=== PATIENT | female | born 1970 | race Caucasian/White ===

== ENCOUNTER 2023-12-07 08:56 | Outpatient (AMB) | payer MEDICAID, SELFPAY ==
[2023-12-07 09:15] VITALS: BP 109/74; PULSE 89; RESP 18; TEMP 36.5; O2SAT 96; BMI 30.2
--- NOTE | 2023-12-07 09:15 | PD.ORTHCLVIS ---
Vital signs 12/07/23 09:15 Height 1.52 m Height Method Stated Weight 69.91 kg Weight Measurement Method Standing Scale BMI 30.2 BP 109/74 Blood Pressure Source Automatic Cuff Blood Pressure Location Right Upper Arm Position Sitting Respiration 18 Pulse 89 Pulse Source Monitor Temp 97.7 F Temp Source Temporal Artery Scan Pulse Oximetry (%) 96 Oxygen Delivery Method Room Air Med/Allergies Allergies & Medications Allergies tramadol Allergy (Unknown, Verified 11/24/23 15:28) Subjective Visit Visit for: follow up visit, knee and injections Immunization / Flu Flu Vaccine in the Last 12 Months: No Flu Vaccine Exclusion Criteria: No Exclusion Criteria History of Present Illness Chief complaint: KNEE INJECTIONS Date of injury / onset of symptoms: a year Patient is a pleasant 53-year female with right greater than left knee pain. This been ongoing for over 1 year and has worsened recently. She reports the pain is miserable. She takes [id number] ibuprofen. She is never had any injections. Her last films were nonweightbearing Personal History Occupation: [email or web address] PMH: none Pain Pain level (0-10): 10 Pain duration: ALL DAY Pain location: inside (medial), outside (lateral), anterior and posterior Pain quality: sharp Pain timing: increases with activity Associated signs & symptoms: weakness Ambulatory data Ambulatory device: none Treatments Improvement with previous injections: No Improvement with PT: No Improvement with NSAIDS: n/a Review of Systems Review of Systems: All systems negative unless otherwise noted in HPI. Exam Exam Patient is in no acute distress and is cooperative with the examination today. Breathing is nonlabored. Patient has a normal mood and affect. Bilateral extremities were evaluated and demonstrates sensation intact to light touch. Palpable pedal pulses are present. No significant edema is present. Bilateral hips were examined. The patient has no pain with log roll of the hips. Internal rotation to 30 degrees and external rotation to 30 degrees is painless. Negative FADIR. Left knee was examined today. The left knee is in reasonable alignment. Range of motion from 0-120 degrees. Knee is stable to varus and valgus as well as AP translation with <5mm. Patient has a negative McMurrays. There is no pain with patellofemoral compression and no crepitus noted. The knee is nontender to palpation. The right knee was also examined. The right knee is in [varus] alignment. Range of motion from [0-115] degrees. Knee is stable to varus and valgus as well as AP translation with <5mm. Patient has a [negative] McMurrays. There is [no] pain with patellofemoral compression and [no] crepitus noted. The knee is [tender] to palpation [medially]. Nonweightbearing x-rays of the [facility] imaging reviewed by me today. This demonstrates moderate joint space narrowing medially. Assessment and Plan Problem List (1) Arthritis of right knee: Status: Acute Plan: Patient is a pleasant 53-year-old female with right knee pain and right knee arthritis. We discussed nonoperative and operative options. Recommend knee cortisone injections as patient would like to proceed with conservative treatment at this time. The risks and benefits of the procedure were reviewed with the patient and patient gave verbal consent to continue with the procedure. Procedure: performed by Dr. Stringer Using sterile technique the Bilateral knees were thoroughly prepped with alcohol, and approximately 1 cc of Kenalog 40 mg/mL and 4 cc of 1% lidocaine was injected into each knee without resistance into the medial tibial femoral joint space. The patient tolerated the procedure. Office Procedures GNS Level of Care Nursing/Assessment Patient Status: Established Patient Nursing Assessment/Reassesment: Medication Reconciliation, Update PMH in EMR and Vital Signs Coordination of Care: Complex Care and Chronic Disease 1-5, Education Complex Pt/Fam, Consent,records obtained, informed consent, Results/Orders obtained and Staff clarify orders Special Needs: Language special needs Established Patient Charge Established Patient Point Assignment: 95 Surgical Proc/IM SQ injection Major Surgical Procedure: Yes (KNEE INJECTION) Medication Given Medication Given Medication Given: Yes Documented Dose Given: 8 Route: Infiitration Medication Given Medication Given Medication Given: Yes Documented Dose Given: 2 Route: Infiitration Office Meds Xylocaine 10 mg/mL (1 %) injection solution Performing Provider: Adalid Stringer MD Performing Location: [facility] Administered by: Adalid Stringer MD on 12/07/23 10:43 Dose Route Admin Location Dispensed Lot Number Expiration Date [facility] [employer] 40 mL Infiltration 40 mL [id number] [facility] triamcinolone acetonide 40 mg/mL suspension for injection Performing Provider: Adalid Stringer MD Performing Location: [facility] Administered by: Adalid Stringer MD on 12/07/23 10:43 Dose Route Admin Location Dispensed Lot Number Expiration Date [employer] 80 mg intra-articular 2 mL [id number] [employer] Past Medical History Past Medical History Have you ever been diagnosed with any of the following: Neurological Problems Seizures: No Cardiology Problems Congestive Heart Failure: No Hypertension: Yes Respiratory Problems Chronic Obstructive Pulmonary Disease (COPD): No Smoking: No Smoking Exposure: No Genital/Urinary Problems Renal Disease: No Reproductive Problems Previous Pregnancies: Yes (X6) Musculoskeletal Problems Arthritis: Yes Carpal Tunnel Syndrome: Yes (LEFT) Endocrine Problems Diabetes Mellitus Type 1: No Diabetes Mellitus Type 2: No (GESTATIONAL DIABETES) Psychologic Problems Depression: Yes (TAKES MED) Anxiety: Yes Other Problems Blood Transfusions: No Blood Transfusion Reaction: No Anesthesia Reactions: No Chicken Pox: Yes Measles: Yes
== END 2023-12-07 09:40 | disposition home or self-care (01) ==
PROVIDERS: PCP Registered Nurse Community Health; Referring Provider Registered Nurse Community Health; Supervising Provider Orthopaedic Surgery Adult Reconstructive Orthopaedic Surgery; Visit Provider Orthopaedic Surgery Adult Reconstructive Orthopaedic Surgery
DX: M17.11 Unilateral primary osteoarthritis, right knee (principal); M25.561 Pain in right knee; I10 Essential (primary) hypertension
CPT/HCPCS: 20610; J3301; J3490

== ENCOUNTER 2024-03-21 07:57 | Outpatient (AMB) | payer MEDICAID, SELFPAY ==
--- NOTE | 2024-03-21 08:09 | PD.ORTHCLVIS ---
Med/Allergies Allergies & Medications Allergies tramadol Allergy (Unknown, Verified 11/24/23 15:28) Exam Exam Patient is in no acute distress and is cooperative with the examination today. Breathing is nonlabored. Patient has a normal mood and affect. Bilateral extremities were evaluated and demonstrates sensation intact to light touch. Palpable pedal pulses are present. No significant edema is present. Bilateral hips were examined. The patient has no pain with log roll of the hips. Internal rotation to 30 degrees and external rotation to 30 degrees is painless. Negative FADIR. Left knee was examined today. The left knee is in reasonable alignment. Range of motion from 0-120 degrees. Knee is stable to varus and valgus as well as AP translation with <5mm. Patient has a negative McMurrays. There is no pain with patellofemoral compression and no crepitus noted. The knee is nontender to palpation. The right knee was also examined. The right knee is in [varus] alignment. Range of motion from [0-115] degrees. Knee is stable to varus and valgus as well as AP translation with <5mm. Patient has a [negative] McMurrays. There is [no] pain with patellofemoral compression and [no] crepitus noted. The knee is [tender] to palpation [medially]. Nonweightbearing x-rays of the [facility] imaging reviewed by me today. This demonstrates moderate joint space narrowing medially. Assessment and Plan Problem List (1) Arthritis of right knee: Status: Acute Plan: Patient is a pleasant 53-year-old female with right knee pain and right knee arthritis. We discussed nonoperative and operative options. Recommend knee cortisone injections as patient would like to proceed with conservative treatment at this time. The risks and benefits of the procedure were reviewed with the patient and patient gave verbal consent to continue with the procedure. Procedure: performed by Dr. Stringer Using sterile technique the Bilateral knees were thoroughly prepped with alcohol, and approximately 1 cc of Kenalog 40 mg/mL and 4 cc of 1% lidocaine was injected into each knee without resistance into the medial tibial femoral joint space. The patient tolerated the procedure. Questionairres Past Medical History Past Medical History Have you ever been diagnosed with any of the following: Neurological Problems Seizures: No Cardiology Problems Congestive Heart Failure: No Hypertension: Yes Respiratory Problems Chronic Obstructive Pulmonary Disease (COPD): No Smoking: No Smoking Exposure: No Genital/Urinary Problems Renal Disease: No Reproductive Problems Previous Pregnancies: Yes (X6) Musculoskeletal Problems Arthritis: Yes Carpal Tunnel Syndrome: Yes (LEFT) Endocrine Problems Diabetes Mellitus Type 1: No Diabetes Mellitus Type 2: No (GESTATIONAL DIABETES) Psychologic Problems Depression: Yes (TAKES MED) Anxiety: Yes Other Problems Blood Transfusions: No Blood Transfusion Reaction: No Anesthesia Reactions: No Chicken Pox: Yes Measles: Yes Subjective Immunization / Flu Flu Vaccine in the Last 12 Months: Yes Flu Vaccine Exclusion Criteria: Already Received History of Present Illness Chief complaint: right knee pain Patient is a pleasant 53-year female with right greater than left knee pain. This been ongoing for over 1 year and has worsened recently. She reports the pain is miserable. She takes [id number] ibuprofen. She is never had any injections. Her last films were nonweightbearing Review of Systems Review of Systems: All systems negative unless otherwise noted in HPI.
[2024-03-21 08:13] VITALS: BP 103/68; PULSE 79; RESP 18; TEMP 36.6
== END 2024-03-21 08:15 | disposition home or self-care (01) ==
LOC: HODSRG 07:57
PROVIDERS: PCP Registered Nurse Community Health; Referring Provider Registered Nurse Community Health; Supervising Provider Orthopaedic Surgery Adult Reconstructive Orthopaedic Surgery; Visit Provider Orthopaedic Surgery Adult Reconstructive Orthopaedic Surgery
DX: M17.11 Unilateral primary osteoarthritis, right knee (principal); M25.561 Pain in right knee; M25.562 Pain in left knee; I10 Essential (primary) hypertension
CPT/HCPCS: 20610; 99212; J3301; J3490; G0463

== ENCOUNTER → 2024-08-15 | Outpatient (CLI) | payer MEDICAID, SELFPAY ==
--- NOTE | 2024-08-15 14:15 | XR_ITS ---
Examination: Screening digital mammography, bilateral Computer aided detection 3-D breast Tomosynthesis, bilateral Date and time of exam: August 15, 2024 1417 hours Compared to mammograms dated to March 20, 2015 Indication: Screening Technique: Nonmagnified MLO, CC views of the breasts to been obtained, reconstructed from 3-D Tomosynthesis images. R2 computer aided detection program utilized for evaluation of suspicious masses and/or abnormal calcifications. 3-D Tomosynthesis images obtained. Findings: The breasts are heterogeneously dense, which may obscure small masses Benign calcifications. No interval suspicious masses Impression: BI-RADS category II: Benign Findings. Recommend 1 year follow-up mammogram.
== END | disposition home or self-care (01) ==
PROVIDERS: Referring Provider Registered Nurse Community Health; Visit Provider Registered Nurse Community Health
DX: Z12.31 Encounter for screening mammogram for malignant neoplasm of breast (principal); R92.323 Mammographic fibroglandular density, bilateral breasts; R92.1 Mammographic calcification found on diagnostic imaging of breast
CPT/HCPCS: 77063; 77067

== ENCOUNTER 2024-08-29 09:45 | Outpatient (AMB) | payer MEDICAID, SELFPAY ==
--- NOTE | 2024-08-29 09:55 | ORTHONT_ITS ---
Vital signs 08/29/24 10:05 Height 1.52 m Height Method Measured Weight 74.843 kg Weight Measurement Method Standing Scale BMI 32.3 BP 124/78 Blood Pressure Source Automatic Cuff Blood Pressure Location Left Upper Arm Position Sitting Respiration 18 Pulse 67 Pulse Source Monitor Temp 97.9 F Temp Source Temporal Artery Scan Pulse Oximetry (%) 97 Oxygen Delivery Method Room Air Med/Allergies Allergies & Medications Allergies tramadol Allergy (Unknown, Verified 08/29/24 10:12) Medication Reconciliation meloxicam 7.5 mg tablet 7.5 mg PO QDAY #45 tabs 11/24/23 [Rx Confirmed 08/29/24] Exam Exam Patient is in no acute distress and is cooperative with the examination today. Breathing is nonlabored. Patient has a normal mood and affect. Bilateral extremities were evaluated and demonstrates sensation intact to light touch. Palpable pedal pulses are present. No significant edema is present. Bilateral hips were examined. The patient has no pain with log roll of the hips. Internal rotation to 30 degrees and external rotation to 30 degrees is painless. Negative FADIR. Left knee was examined today. The left knee is in reasonable alignment. Range of motion from 0-120 degrees. Knee is stable to varus and valgus as well as AP translation with <5mm. Patient has a negative McMurrays. There is no pain with patellofemoral compression and no crepitus noted. The knee is nontender to palpation. The right knee was also examined. The right knee is in [varus] alignment. Range of motion from [0-115] degrees. Knee is stable to varus and valgus as well as AP translation with <5mm. Patient has a [negative] McMurrays. There is [no] pain with patellofemoral compression and [no] crepitus noted. The knee is [tender] to palpation [medially]. x-rays from [facility] imaging reviewed by me today. This demonstrates moderate joint space narrowing medially. Assessment and Plan Problem List (1) Arthritis of right knee: Status: Acute Plan: Patient is a pleasant 53-year-old female with bilateral knee pain and right greater than left knee arthritis we discussed nonoperative and operative options. Recommend knee cortisone injection as patient would like to proceed with conservative treatment at this time. The risks and benefits of the procedure were reviewed with the patient and patient gave verbal consent to continue with the procedure. Procedure: performed by Dr. Stringer Using sterile technique the Right knee was thoroughly prepped with alcohol, and approximately 1 cc of Depo-Medrol 80mg/mL and 4 cc of 0.2% ropivacaine was injected without resistance into the medial tibial femoral joint space. The patient tolerated the procedure. Recommend knee cortisone injection as patient would like to proceed with conservative treatment at this time. The risks and benefits of the procedure were reviewed with the patient and patient gave verbal consent to continue with the procedure. Procedure: performed by Dr. Stringer Using sterile technique the left knee was thoroughly prepped with alcohol, and approximately 1 cc of Depo-Medrol 80mg/mL and 4 cc of 0.2% ropivacaine was injected without resistance into the medial tibial femoral joint space. The patient tolerated the procedure. Office Procedures GNS Level of Care Nursing/Assessment Patient Status: Established Patient Nursing Assessment/Reassesment: Medication Reconciliation, Update PMH in EMR and Vital Signs Coordination of Care: Complex Care and Chronic Disease 1-5, Education Complex Pt/Fam, Consent,records obtained, informed consent, Results/Orders obtained and Staff clarify orders Special Needs: Language special needs Established Patient Charge Established Patient Point Assignment: 95 Established Patient Point Charge: EP Level 3 (80-115) Surgical Proc/IM SQ injection Major Surgical Procedure: Yes (BILATERAL KNEE INJECTION) Medication Given Medication Given Medication Given: Yes Documented Dose Given: 1 Route: Infiitration Medication Given Medication Given Medication Given: Yes Documented Dose Given: 1 Route: Infiitration Medication Given Medication Given Medication Given: Yes Documented Dose Given: 4 Route: Infiitration Medication Given Medication Given Medication Given: Yes Documented Dose Given: 4 Route: Infiitration Office Meds methylprednisolone acetate 80 mg/mL suspension for injection Performing Provider: Adalid Stringer MD Performing Location: [facility] Administered by: Adalid Stringer MD on 08/29/24 10:13 Dose Route Admin Location Dispensed Lot Number Expiration Date [facility] [employer] 80 mg intra-articular KNEE 1 mL [id number] 04/05/25 [address]-[address] [facility] methylprednisolone acetate 80 mg/mL suspension for injection Performing Provider: Adalid Stringer MD Performing Location: [facility] Administered by: Adalid Stringer MD on 08/29/24 10:13 Dose Route Admin Location Dispensed Lot Number Expiration Date [facility] [employer] 80 mg intra-articular KNEE 1 mL [id number] 01/05/26 [address]-[address] [facility] ropivacaine (PF) 2 mg/mL (0.2 %) injection solution Performing Provider: Adalid Stringer MD Performing Location: [facility] Administered by: Adalid Stringer MD on 08/29/24 10:13 Dose Route Admin Location Dispensed Lot Number Expiration Date [facility] [employer] Assistant 20 mL Infiltration KNEE 20 mL [id number] 01/05/26 11670-005-51 [facility] ropivacaine (PF) 2 mg/mL (0.2 %) injection solution Performing Provider: Adalid Stringer MD Performing Location: [facility] Administered by: Adalid Stringer MD on 08/29/24 10:13 Dose Route Admin Location Dispensed Lot Number Expiration Date [facility] [employer] Assistant 20 mL Infiltration KNEE 20 mL [id number] 01/05/26 56021-735-36 [facility] Intake Visit Data Collection New Patient or Established: Established Patient (seen at [facility] within 3 years) Reason for Visit:: BILATERAL KNEE INJECTIONS Seen by Clinical Staff ONLY (RN/MA): No Legal File Clerk Required: Yes PCP or OBGYN visit in last 3 months: Yes Hx Now: No Do You Feel Safe at Home: Yes Authorities Contacted: N/A Questionairres Past Medical History Past Medical History Have you ever been diagnosed with any of the following: Neurological Problems Seizures: No Cardiology Problems Congestive Heart Failure: No Hypertension: Yes Respiratory Problems Chronic Obstructive Pulmonary Disease (COPD): No Smoking: No Smoking Exposure: No Genital/Urinary Problems Renal Disease: No Reproductive Problems Previous Pregnancies: Yes (X6) Musculoskeletal Problems Arthritis: Yes Carpal Tunnel Syndrome: Yes (LEFT) Endocrine Problems Diabetes Mellitus Type 1: No Diabetes Mellitus Type 2: No (GESTATIONAL DIABETES) Psychologic Problems Depression: Yes (TAKES MED) Anxiety: Yes Other Problems Blood Transfusions: No Blood Transfusion Reaction: No Anesthesia Reactions: No Chicken Pox: Yes Measles: Yes Subjective Visit Visit for: follow up visit and knee Immunization / Flu Flu Vaccine in the Last 12 Months: No Flu Vaccine Exclusion Criteria: No Exclusion Criteria and Already Received History of Present Illness Chief complaint: right knee pain Patient is a pleasant 53-year female with right greater than left knee pain. This been ongoing for over 1 year and has worsened recently. She reports the pain is miserable. She takes qojo-[id number] ibuprofen. She did well with the last injections of her left another round of them today Personal History BMI Counceling provided: Yes Pain Pain level (0-10): 8 Pain location: anterior Pain quality: sharp Pain timing: increases with activity Associated signs & symptoms: none Ambulatory data Ambulatory device: none Treatments Number of previous injections: 4 Improvement with previous injections: Yes Improvement with PT: No Improvement with NSAIDS: yes Review of Systems Review of Systems: All systems negative unless otherwise noted in HPI.
[2024-08-29 10:05] VITALS: BP 124/78; PULSE 67; RESP 18; TEMP 36.6; O2SAT 97; BMI 32.3
== END 2024-08-29 10:27 | disposition home or self-care (01) ==
PROVIDERS: PCP Registered Nurse Community Health; Referring Provider Registered Nurse Community Health; Supervising Provider Orthopaedic Surgery Adult Reconstructive Orthopaedic Surgery; Visit Provider Orthopaedic Surgery Adult Reconstructive Orthopaedic Surgery
DX: M17.0 Bilateral primary osteoarthritis of knee (principal); M25.562 Pain in left knee; M25.561 Pain in right knee; F32.A Depression, unspecified
CPT/HCPCS: 20610; 99213; J1010; J2795; G0463

== ENCOUNTER 2024-09-30 06:31 | Emergency (ER) | payer MEDICAID, SELFPAY ==
[2024-09-30 06:32] VITALS: BMI 30.7
--- NOTE | 2024-09-30 06:42 | XR_ITS ---
Examination: Duplex scan of the lower extremity, unilateral right Date and time of exam: September 30, 2024 0747 hours INDICATIONS: Right knee swelling and pain 2 years worse the last week Technique: Duplex scan of the extremity veins using B-mode/grayscale imaging and Doppler spectral analysis and color flow Attention is directed to internal echogenicity, compression and augmentation involving these veins, color flow assessment, spectral analysis Findings: Major deep venous structures in the extremity demonstrate normal course and caliber. There is no evidence of deep vein thrombosis. Normal color flow and spectral analysis Impression: Negative for DVT..
[2024-09-30 06:45] VITALS: BP 142/84; PULSE 93; RESP 18; TEMP 36.7; O2SAT 98
--- NOTE | 2024-09-30 06:54 | PD.EDLOWEX ---
Lower Extremity Injury RME/HPI General Chief Complaint: Extremity Injury, Lower Stated Complaint: RT KNEE PAIN /SWELLING [id number] Time Seen by Provider: 09/30/24 06:34 Source: patient Arrival date/time: 09/30/24 06:31 54-year-old female with a history of arthritis presents to the emergency room with a chief complaint of right knee pain and swelling x 1 week. Patient states she has had this right knee pain for over 2 years but the swelling is new. Mode of arrival: ambulatory Limitations: no limitations Related Data Previous Rx's ?Medication ?Instructions ?Recorded meloxicam 7.5 mg tablet 7.5 mg PO QDAY #45 tabs 11/24/23 Allergies Allergy/AdvReac Type Severity Reaction Status Date / Time tramadol Allergy Unknown Verified 08/29/24 10:12 Review of Systems Review of Systems Systems Reviewed: All systems reviewed, normal except as documented Constitutional Constitutional: Reports system reviewed and no additional complaints, except as documented, Denies fatigue, Denies fever(s), Denies headache(s) and Denies weakness Eyes Eyes: Reports system reviewed and no additional complaints, except as documented, Denies blurry vision and Denies change in vision ENT Ears, Nose, Mouth, and Throat: Reports system reviewed and no additional complaints, except as documented, Denies otalgia, Denies headache(s), Denies nasal congestion, Denies throat swelling and Denies vertigo Cardiovascular Cardiovascular: Reports system reviewed and no additional complaints, except as documented, Denies chest pain, Denies dyspnea and Denies dyspnea on exertion Respiratory Respiratory: Reports system reviewed and no additional complaints, except as documented, Denies chest congestion, Denies cough, Denies dyspnea, Denies dyspnea on exertion and Denies wheezing Gastrointestinal Gastrointestinal: Reports system reviewed and no additional complaints, except as documented, Denies abdominal pain, Denies cramping, Denies nausea and Denies vomiting Genitourinary Genitourinary: Reports system reviewed and no additional complaints, except as documented Musculoskeletal Musculoskeletal: Reports system reviewed and no additional complaints, except as documented, Denies back pain, Reports joint swelling and Reports limited range of motion Integumentary/Breasts Skin/Breast: Reports system reviewed and no additional complaints, except as documented and Denies wounds Neurologic Neurologic: Reports system reviewed and no additional complaints, except as documented, Denies confusion, Denies headache(s), Denies lack of coordination, Denies vertigo and Denies weakness Psychiatric Psychiatric: Reports system reviewed and no additional complaints, except as documented, Denies anxiety, Denies confusion, Denies depression, Denies paranoia, Denies suicidal ideation and Denies tactile hallucinations Endocrine Endocrine: Reports system reviewed and no additional complaints, except as documented and Denies fatigue Hematologic/Lymphatic Hematologic/Lymphatic: Reports system reviewed and no additional complaints, except as documented and Denies lymphadenopathy Allergic/Immunologic Allergic/Immunologic: Reports system reviewed and no additional complaints, except as documented, Denies throat swelling, Denies urticaria and Denies wheezing Past Medical History Past Medical History NEUROLOGIC: Negative Neurological Disorders or Seizures CARDIAC: Positive Hypertension; Negative Cardiac Disorders or Congestive Heart Failure RESPIRATORY: Negative Chronic Obstructive Pulmonary Disease (COPD), Smoking or Smoking Exposure GASTROINTESTINAL: Negative Gastrointestinal Disorders GENITOURINARY: Negative Genitourinary Disorders or Renal Disease REPRODUCTIVE: Positive Previous Pregnancies (X6) MUSCULOSKELETAL: Positive Musculoskeletal Disorders, Arthritis and Carpal Tunnel Syndrome (LEFT) ENDOCRINE: Negative Endocrine Disorders, Diabetes Mellitus Type 1 or Diabetes Mellitus Type 2 (GESTATIONAL DIABETES) HEMATOLOGIC: Negative Blood Disorders PSYCHO/SOCIAL: Positive Depression (TAKES MED) and Anxiety OTHER HISTORY: Positive Chicken Pox and Measles; Negative Autoimmune Disease, Blood Transfusions, Blood Transfusion Reaction or Anesthesia Reactions Family History FAMILY HISTORY: Positive Family Cardiac Disorders (MOTHER,BROTHERS,SISTERS (HTN)) and Family Surgery (SISTER); Negative Family Psychiatric Problems, Family Respiratory Disorders, Family Gastrointestinal Problems, Family Cancer or Family Anesthesia Reaction Surgical History SURGICAL: Positive Section (X2) Social History SMOKING STATUS: Never smoker ED Exam General Limitations: Present no limitations General appearance: Present alert and in no apparent distress Head Head exam: Present atraumatic Eye Eye exam: Present normal appearance, PERRL and EOMI ENT ENT exam: Present normal exam, normal oropharynx and mucous membranes moist Neck Neck exam: Present normal inspection, full ROM and trachea midline Chest Chest inspection: Present normal inspection and symmetric chest wall rise Respiratory Respiratory exam: Present normal lung sounds bilaterally Cardiovascular Cardiovascular exam: Present regular rate, normal rhythm and normal heart sounds Abdominal Exam Abdominal exam: Present soft and normal bowel sounds Extremities Exam Extremities exam: Present normal inspection and full ROM Expanded Lower Extremity Exam Hip/Pelvis exam: Present normal inspection Upper leg exam: Present normal inspection Knee exam: Present tenderness and swelling Lower leg exam: Present normal inspection Ankle exam: Present normal inspection Foot/toe exam: Present normal inspection Neurovascular/Tendon exam: Present normal capillary refill Gait: observed and limited by pain Back Exam Back exam: Present normal inspection and full ROM Neurological Exam Neurological exam: Present alert, oriented X3 and CN II-XII intact Psychiatric Psychiatric exam: Present normal affect and normal mood Skin Skin exam: Present warm, dry, intact and normal color Course Quality Measures none Orders Category Date Time Status hamilton wrap [Splint / Immobilizer] STAT Care 09/30/24 06:55 Active US venous doppler LE RT Stat Exams 09/30/24 06:42 Completed CBC Stat Lab 09/30/24 07:07 Completed CMP [Comprehensive Metabolic Panel] Stat Lab 09/30/24 07:07 Completed Uric Acid Stat Lab 09/30/24 07:07 Completed Ketorolac Inj [Toradol Inj] Med 09/30/24 06:55 Discontinued 30 mg IM X1 ONE Vital Signs Vital signs: Vital Signs Temperature 98.0 F 09/30/24 06:45 Pulse Rate 93 09/30/24 06:45 Respiratory Rate 18 09/30/24 06:45 Blood Pressure 142/84 H 09/30/24 06:45 Pulse Oximetry (%) 98 09/30/24 06:45 Oxygen Delivery Method Room Air 09/30/24 06:45 Extremity Injury, Lower MDM Narrative MDM Narrative:: 54-year-old female with a history of arthritis presents to the emergency room with a chief complaint of right knee pain and swelling x 1 week. Patient states she has had this right knee pain for over 2 years but the swelling is new. Patient is hemodynamically stable and in no apparent distress Physical examination shows some swelling and tenderness to the patient's right knee. Patient states she has had imaging which was all negative and she was told she just has arthritis. Patient states about a week ago the swelling has increased and her pain is now behind her knee as well. An ultrasound was completed and was negative for any DVT. The patient's uric acid was checked which was within normal limits. The patient was educated that she will need to follow-up with her primary care provider for an MRI to assess for any ligament damage or tears Patient was discharged and educated to follow-up with primary care provider in the next 24 to 48 hours and return to the emergency room for any evidence of worsening signs or symptoms Patient data External records reviewed:: [facility] previous records Clinical information provided by:: patient Social determinants that could affect healthcare access:: none Patient has the following chronic illnesses:: No chronic illness How is presenting disease/condition affected by chronic disease/condition?: no chronic disease Evaluation data The following diagnostics were reviewed and interpreted by me:: lab results and radiology exam(s) Lab and/or radiology exams considered but not ordered:: Labs and radiology exams considered and ordered Interpretation Summary: Ultrasound Doppler-Findings: Major deep venous structures in the extremity demonstrate normal course and caliber. There is no evidence of deep vein thrombosis. Normal color flow and spectral analysis Impression: Negative for DVT.. Medications / Prescriptions Medications or Prescriptions considered but not ordered:: Medication given Medication administrations:: Medication Administration History Discontinued Medications Ketorolac Tromethamine (Ketorolac Inj 60 Mg/2 Ml Vial) 30 mg IM X1 ONE Stop: 09/30/24 06:56 Last Admin: 09/30/24 07:19 Dose: 30 mg Documented By: LP Medication given Consultations Consultation(s) initiated? (list below): No Diagnosis Extremity Injury, Lower Differential Diagnosis: acute internal derangement of knee and other (Right knee sprain/DVT/gout) Most likely diagnosis given after review of the tests above:: Right knee sprain Admission Indicated Admission indicated?: not indicated Admission Request Was there a request for admission?: No Disposition Plan Disposition Plan: Discharge Discharge Attestation Discharge Attestation: The patient and all family members were given an opportunity to ask questions and understood the discharge instructions. Discharge instructions specifically effects, indications for sooner follow up or return to the emergency department, and the expected course of current diagnosis. Patient condition: Stable Discharge Plan Plan Patient Disposition: HOME (Self Care) Discharge Disposition comment: Stable Prescriptions/Referrals Prescriptions/Med Rec: No Action meloxicam 7.5 mg tablet 7.5 mg PO QDAY Qty: 45 3RF Referrals: Temporary Provider,ED [Physician] - In 1 week Problem List Clinical Impression: Right knee sprain Patient/Caregiver Discharge Instructions Education Materials: ED HAMILTON Wrap, ED Knee Sprain, ED Sprain Knee Collateral Ligaments Additional Instructions: Por favor, consulte con garcía m?dico de cabecera en las pr?ximas 24 a 48 horas. Si la inflamaci?n y el dolor persisten, necesitar? bernie resonancia magn?isis de la rodilla para evaluar si hay da?o o desgarro de ligamentos. Kaitlin niveles de ?cido ?rico estaban dentro de los l?mites normales y no hay evidencia de TVP en la ecograf?a. Si observa cualquier signo de empeoramiento de los signos o s?ntomas, acuda a urgencias de inmediato. Print Language: Sami Stand Alone Forms: Farrah Award Info., Patient Portal Info Letter PA/[employer] PROFESSOR Supervising Physician PA/[employer] PROFESSOR Supervising Physician: Dr. Gandhi
[2024-09-30] MEDS: KETOROLAC INJ 60 MG/2 ML VIAL 30 MG IM (07:19)
[2024-09-30 07:29] LABS: Basophils # (Auto) 0.0 Thou/mm3 (0.0-0.2); Basophils % (Auto) 0 % (0-2.5); Eosinophils # (Auto) 0.1 Thou/mm3 (0.0-0.5); Eosinophils % (Auto) 1 % (0-10); Hematocrit 38.3 % (36.0-46.0); Hemoglobin 12.6 g/dL (12.0-16.0); Immature Granulocytes Auto 0.04 Thou/mm3 (0.00-0.00); Lymphocytes # (Auto) 1.0 Thou/mm3 (1.0-4.8); Lymphocytes % (Auto) 11 % (10-50); Mean Corpuscular HGB Conc 32.9 g/dl (31.0-37.0); Mean Corpuscular Hemoglobin 30.1 pg (25.0-35.0); Mean Corpuscular Volume 92 fL (80-100); Monocytes # (Auto) 0.5 Thou/mm3 (0.0-0.8); Monocytes % (Auto) 6 % (0-12); Neutrophils # (Auto) 7.3 Thou/mm3 (1.8-7.7); Neutrophils % (Auto) 81 % (37-80); Nucleated Red Blood Cell # 0.00 Thou/mm3 (0.00-0.00); Nucleated Red Blood Cell % 0 /100 WBC (0); Platelet Count 288 Thou/mm3 (140-440); RDW Standard Deviation 45.8 fL (36.4-46.3); Red Blood Count 4.18 Miln/mm3 (4.00-5.20); White Blood Count 9.0 Thou/mm3 (3.6-11.0)
[2024-09-30 07:41] LABS: Alanine Aminotransferase 33 U/L (10-49); Albumin, Serum 4.1 gm/dL (3.5-5.0); Albumin/Globulin Ratio 1.4 (1.2-2.2); Alkaline Phosphatase 85 U/L (46-116); Anion Gap 7 (7-16); Aspartate Amino Transferase 20 U/L (0-34); BUN/Creatinine Ratio 19 Ratio (12-20); Bilirubin,Total 0.5 mg/dL (0.3-1.2); Blood Urea Nitrogen 13 mg/dL (9-23); Calcium 9.5 mg/dL (8.3-10.6); Calcium (Corrected) 9.5 mg/dL (8.5-10.1); Carbon Dioxide 28.6 mMol/L (20.0-31.0); Chloride 104 mMol/L (98-107); Creatinine (Component) 0.7 mg/dL (0.6-1.3); Estimated Creatinine Clearance 82.8 mL/min (>60); Globulin 2.9 gm/dL (2.3-3.5); Glucose 170 mg/dL (74-106); Osmolality,Calculated 283 (275-295); Potassium 4.1 mMol/L (3.4-5.1); Sodium 140 mMol/L (136-145); Total Protein 7.0 gm/dL (5.7-8.2); Uric Acid 3.4 mg/dL (3.1-7.8); eGFR > 60 See Note
[2024-09-30 09:41] VITALS: BP 121/85; PULSE 88; RESP 18; TEMP 36.5; O2SAT 98
== END 2024-09-30 09:42 | disposition home or self-care (01) ==
PROVIDERS: Nurse Practitioner Family; Emergency Provider Emergency Medicine; PCP Registered Nurse Community Health
DX: S83.91XA Sprain of unspecified site of right knee, initial encounter (principal); X58.XXXA Exposure to other specified factors, initial encounter
CPT/HCPCS: 36415; 80053; 84550; 85025; 93971; 96372; 99284; J1885

== ENCOUNTER → 2024-11-19 | Outpatient (CLI) | payer MEDICAID, SELFPAY ==
--- NOTE | 2024-11-19 08:53 | XR_ITS ---
Examination: Knee, right, 3 views Technique: Knee AP, lateral, oblique 3 views Date and time of exam: November 19, 2024, 0855 hours INDICATIONS: Patient fell 3 months ago with injury of the knee, knee pain. FINDINGS: Advanced tricompartment osteoarthritis. No fracture. Large knee effusion IMPRESSION: No fracture Large knee effusion, seen with internal derangement of the knee
== END | disposition home or self-care (01) ==
PROVIDERS: PCP Registered Nurse Community Health; Referring Provider Registered Nurse Community Health; Visit Provider Registered Nurse Community Health
DX: S89.81XA Other specified injuries of right lower leg, initial encounter (principal); W19.XXXA Unspecified fall, initial encounter
CPT/HCPCS: 73562

== ENCOUNTER 2024-11-25 08:04 | Emergency (ER) | payer MEDICAID, SELFPAY ==
[2024-11-25 08:05] VITALS: BMI 32.5
[2024-11-25 08:22] VITALS: BP 95/68; PULSE 133; RESP 18; TEMP 36.9; O2SAT 98
--- NOTE | 2024-11-25 08:28 | PD.EDNV ---
Nausea/Vomit./Diarrhea-RME/HPI General Chief complaint: Nausea/Vomiting/Diarrhea Stated complaint: VOMITING Source: patient Arrival date/time: 11/25/24 08:04 54-year-old female with no known medical history presents to the emergency room with a chief complaint of nausea, abdominal pain, vomiting x 4 days. Patient states she bought Wegovy weight loss medication at a [employer] and took it and her symptoms have started since then. Mode of arrival: ambulatory Limitations: no limitations Related Data Previous Rx's ?Medication ?Instructions ?Recorded meloxicam 7.5 mg tablet 7.5 mg PO QDAY #45 tabs 11/24/23 Allergies Allergy/AdvReac Type Severity Reaction Status Date / Time tramadol Allergy Unknown Verified 08/29/24 10:12 Review of Systems Review of Systems Systems Reviewed: All systems reviewed, normal except as documented Constitutional Constitutional: Reports system reviewed and no additional complaints, except as documented, Denies fatigue, Denies fever(s), Denies headache(s) and Denies weakness Eyes Eyes: Reports system reviewed and no additional complaints, except as documented, Denies blurry vision and Denies change in vision ENT Ears, Nose, Mouth, and Throat: Reports system reviewed and no additional complaints, except as documented, Denies otalgia, Denies headache(s), Denies nasal congestion, Denies throat swelling and Denies vertigo Cardiovascular Cardiovascular: Reports system reviewed and no additional complaints, except as documented, Denies chest pain, Denies dyspnea and Denies dyspnea on exertion Respiratory Respiratory: Reports system reviewed and no additional complaints, except as documented, Denies chest congestion, Denies cough, Denies dyspnea, Denies dyspnea on exertion and Denies wheezing Gastrointestinal Gastrointestinal: Reports system reviewed and no additional complaints, except as documented, Reports abdominal pain, Reports cramping, Reports nausea and Reports vomiting Genitourinary Genitourinary: Reports system reviewed and no additional complaints, except as documented Musculoskeletal Musculoskeletal: Reports system reviewed and no additional complaints, except as documented and Denies back pain Integumentary/Breasts Skin/Breast: Reports system reviewed and no additional complaints, except as documented and Denies wounds Neurologic Neurologic: Reports system reviewed and no additional complaints, except as documented, Denies confusion, Denies headache(s), Denies lack of coordination, Denies vertigo and Denies weakness Psychiatric Psychiatric: Reports system reviewed and no additional complaints, except as documented, Denies anxiety, Denies confusion, Denies depression, Denies paranoia, Denies suicidal ideation and Denies tactile hallucinations Endocrine Endocrine: Reports system reviewed and no additional complaints, except as documented and Denies fatigue Hematologic/Lymphatic Hematologic/Lymphatic: Reports system reviewed and no additional complaints, except as documented and Denies lymphadenopathy Allergic/Immunologic Allergic/Immunologic: Reports system reviewed and no additional complaints, except as documented, Denies throat swelling, Denies urticaria and Denies wheezing ED Exam General Limitations: Present no limitations General appearance: Present alert and in no apparent distress Head Head exam: Present atraumatic Eye Eye exam: Present normal appearance, PERRL and EOMI ENT ENT exam: Present normal exam, normal oropharynx and mucous membranes moist Neck Neck exam: Present normal inspection, full ROM and trachea midline Chest Chest inspection: Present normal inspection and symmetric chest wall rise Respiratory Respiratory exam: Present normal lung sounds bilaterally Cardiovascular Cardiovascular exam: Present regular rate, normal rhythm and normal heart sounds Abdominal Exam Abdominal exam: Present soft, tenderness and normal bowel sounds; Absent New's sign, Rovsing's sign or tenderness at McBurney's Point Abdominal tenderness: Present epigastrium and mild; Absent RUQ or RLQ Extremities Exam Extremities exam: Present normal inspection and full ROM Back Exam Back exam: Present normal inspection and full ROM Neurological Exam Neurological exam: Present alert, oriented X3 and CN II-XII intact Psychiatric Psychiatric exam: Present normal affect and normal mood Skin Skin exam: Present warm, dry, intact and normal color Course Quality Measures none Orders Category Date Time Status Insert IV STAT Care 11/25/24 08:27 Active CBC Stat Lab 11/25/24 08:27 Ordered CMP [Comprehensive Metabolic Panel] Stat Lab 11/25/24 08:27 Ordered HCG Qualitative,Urine Stat Lab 11/25/24 08:27 Ordered Lipase Stat Lab 11/25/24 08:27 Ordered UA [Urinalysis] Stat Lab 11/25/24 08:27 Ordered Urine Culture Stat Lab 11/25/24 08:27 Ordered Ondansetron Inj [Zofran Inj] Med 11/25/24 08:27 Once 4 mg IVP X1 ONE SODIUM CHLORIDE 0.9% @ Wide Open(1,000ml) Med 11/25/24 08:27 Ordered Sodium Chloride 0.9% 1000 ml [Ns] 1,000 ml IV 999 mls/hr Vital Signs Vital signs: Vital Signs Temperature 98.4 F 11/25/24 08:22 Pulse Rate 133 H 11/25/24 08:22 Respiratory Rate 18 11/25/24 08:22 Blood Pressure 95/68 11/25/24 08:22 Pulse Oximetry (%) 98 11/25/24 08:22 Oxygen Delivery Method Room Air 11/25/24 08:22 Nausea/Vomiting/Diarrhea MDM Narrative MDM Narrative:: 54-year-old female with no known medical history presents to the emergency room with a chief complaint of nausea, abdominal pain, vomiting x 4 days. Patient states she bought Wegovy weight loss medication at a [employer] market and took it and her symptoms have started since then. Patient data External records reviewed:: [facility] previous records Clinical information provided by:: patient Social determinants that could affect healthcare access:: none Patient has the following chronic illnesses:: No chronic illness How is presenting disease/condition affected by chronic disease/condition?: no chronic disease Evaluation data The following diagnostics were reviewed and interpreted by me:: lab results and radiology exam(s) Lab and/or radiology exams considered but not ordered:: Labs and radiology exams considered and ordered Interpretation Summary: N/A Medications / Prescriptions Medications / Prescriptions considered but not ordered:: Medication given Medication administrations:: Medication given Consultations Consultation(s) initiated? (list below): No Diagnosis Nausea Differential Diagnosis: traveler's diarrhea, gastroenteritis and dehydration Admission Indicated Admission indicated?: not indicated Admission Request Was there a request for admission?: No Disposition Plan Disposition Plan: Discharge Discharge Attestation Discharge Attestation: The patient and all family members were given an opportunity to ask questions and understood the discharge instructions. Discharge instructions specifically effects, indications for sooner follow up or return to the emergency department, and the expected course of current diagnosis. Patient condition: Stable Discharge Plan Prescriptions/Referrals Prescriptions/Med Rec: No Action meloxicam 7.5 mg tablet 7.5 mg PO QDAY Qty: 45 3RF Patient/Caregiver Discharge Instructions Print Language: Telugu
[2024-11-25 09:01] LABS: Collection Type, Urine Clean Catch
[2024-11-25 09:05] LABS: Basophils # (Auto) 0.0 Thou/mm3 (0.0-0.2); Basophils % (Auto) 0 % (0-2.5); Eosinophils # (Auto) 0.1 Thou/mm3 (0.0-0.5); Eosinophils % (Auto) 1 % (0-10); Hematocrit 45.7 % (36.0-46.0); Hemoglobin 15.6 g/dL (12.0-16.0); Immature Granulocytes Auto 0.05 Thou/mm3 (0.00-0.00); Lymphocytes # (Auto) 1.9 Thou/mm3 (1.0-4.8); Lymphocytes % (Auto) 14 % (10-50); Mean Corpuscular HGB Conc 34.1 g/dl (31.0-37.0); Mean Corpuscular Hemoglobin 30.5 pg (25.0-35.0); Mean Corpuscular Volume 89 fL (80-100); Monocytes # (Auto) 1.1 Thou/mm3 (0.0-0.8); Monocytes % (Auto) 8 % (0-12); Neutrophils # (Auto) 11.1 Thou/mm3 (1.8-7.7); Neutrophils % (Auto) 78 % (37-80); Nucleated Red Blood Cell # 0.00 Thou/mm3 (0.00-0.00); Nucleated Red Blood Cell % 0 /100 WBC (0); Platelet Count 361 Thou/mm3 (140-440); RDW Standard Deviation 43.2 fL (36.4-46.3); Red Blood Count 5.11 Miln/mm3 (4.00-5.20); White Blood Count 14.3 Thou/mm3 (3.6-11.0)
[2024-11-25] MEDS: SODIUM CHLORIDE 0.9% 1000 ML 1,000 ML 999 ML IV (09:16)
[2024-11-25] MEDS: ONDANSETRON INJ 2 MG/ML INJ 2 ML 4 MG IVP (09:16)
[2024-11-25 09:22] LABS: HCG Qualitative,Urine Negative
[2024-11-25 09:27] LABS: Bilirubin,Urine 1+ (Negative); Blood,Urine Negative (Negative); Calcium Oxalate Crystals,Urine 1+; Clarity,Urine Turbid (Clear/Hazy); Color,Urine Drk-Yellow (Lt Yel-Yel); Glucose, Urine Negative (Negative); Ketones,Urine 2+ (Negative); Leukocyte Esterase,Urine Negative (Negative); Nitrite,Urine Negative (Negative); PH,Urine 6.0 (5.0-7.0); Protein,Urine 1+ (Neg - Trace); RBC,Urine 4 /hpf (0-3); Specific Gravity,Urine 1.029 (1.001-1.035); Squamous Epithelial Cell,Urine 7 /hpf (0-5); Urobilinogen,Urine 4.0 mg/dL (0.0-1.0); WBC,Urine 1 /hpf (0-5)
[2024-11-25 09:31] LABS: Alanine Aminotransferase 82 U/L (10-49); Albumin, Serum 5.1 gm/dL (3.5-5.0); Albumin/Globulin Ratio 1.9 (1.2-2.2); Alkaline Phosphatase 101 U/L (46-116); Anion Gap 12 (7-16); Aspartate Amino Transferase 37 U/L (0-34); BUN/Creatinine Ratio 14 Ratio (12-20); Bilirubin,Total 1.0 mg/dL (0.3-1.2); Blood Urea Nitrogen 13 mg/dL (9-23); Calcium 10.3 mg/dL (8.3-10.6); Calcium (Corrected) 10.3 mg/dL (8.5-10.1); Carbon Dioxide 26.9 mMol/L (20.0-31.0); Chloride 100 mMol/L (98-107); Creatinine (Component) 0.9 mg/dL (0.6-1.3); Estimated Creatinine Clearance 66.5 mL/min (>60); Globulin 2.7 gm/dL (2.3-3.5); Glucose 117 mg/dL (74-106); Lipase 27 U/L (12-53); Osmolality,Calculated 278 (275-295); Potassium 3.6 mMol/L (3.4-5.1); Sodium 139 mMol/L (136-145); Total Protein 7.8 gm/dL (5.7-8.2); eGFR > 60 See Note
--- NOTE | 2024-11-25 10:05 | PD.EDNV ---
Nausea/Vomit./Diarrhea-RME/HPI General Chief complaint: Nausea/Vomiting/Diarrhea Stated complaint: VOMITING Time Seen by Provider: 11/25/24 08:30 Source: patient Arrival date/time: 11/25/24 08:04 Mode of arrival: ambulatory Limitations: no limitations RME / HPI RME / HPI Narrative: 54 yo female patient c/o vomiting x 5 days after injecting Wegovy that she [place] [employer] [employer]. Able to keep down small amounts of water. Tolerated a small amount of jello. Otherwise vomiting everything. No other complaints reported. Related Data Previous Rx's ?Medication ?Instructions ?Recorded meloxicam 7.5 mg tablet 7.5 mg PO QDAY #45 tabs 11/24/23 Allergies Allergy/AdvReac Type Severity Reaction Status Date / Time tramadol Allergy Unknown Verified 08/29/24 10:12 Review of Systems Review of Systems Systems Reviewed: All systems reviewed, normal except as documented Past Medical History Past Medical History CARDIAC: Positive Hypertension REPRODUCTIVE: Positive Previous Pregnancies MUSCULOSKELETAL: Positive Musculoskeletal Disorders, Arthritis and Carpal Tunnel Syndrome PSYCHO/SOCIAL: Positive Depression and Anxiety OTHER HISTORY: Positive Chicken Pox and Measles Family History FAMILY HISTORY: Positive Family Cardiac Disorders and Family Surgery Surgical History SURGICAL: Positive Section Social History SMOKING STATUS: Never smoker ED Exam Narrative Physical exam: GENERAL APPEARANCE: alert and oriented x 4, well-developed, well-nourished, no acute distress HEENT: Normocephalic, atraumatic; pupils equal, round, reactive to light; EOMI; mucous membranes pink, moist; oropharynx clear NECK: Supple LUNGS: CTABL; no wheezes, no rales, no rhonchi HEART: Regular rate, regular rhythm; normal S1, S2; no murmurs ABDOMEN: non distended; normal BS; soft, no tenderness, no guarding, no rebound; no masses, no organomegaly, no hernia BACK: no CVA tenderness EXTREMITIES: atraumatic; no edema NEUROLOGIC: awake; alert and oriented x4; cranial nerves II-XII grossly intact; no focal sensory or motor deficits PSYCHIATRIC: appropriate mood and affect SKIN: warm, dry, normal color; no rashes General Limitations: Present no limitations General appearance: Present alert and in no apparent distress Course Course Course Narrative: Patient remains clinically stable throughout the emergency department visit. She tolerated po well. We reviewed all the results, analysis, and treatment plans. Patient is amenable to discharge. Strict return precautions were outlined. Quality Measures none Orders Category Date Time Status Insert IV STAT Care 11/25/24 08:27 Completed XR abdomen flat and uprght Stat Exams 11/25/24 10:06 Completed CBC Stat Lab 11/25/24 08:45 Completed CMP [Comprehensive Metabolic Panel] Stat Lab 11/25/24 08:15 Completed HCG Qualitative,Urine Stat Lab 11/25/24 08:56 Completed Lipase Stat Lab 11/25/24 08:15 Completed UA [Urinalysis] Stat Lab 11/25/24 08:56 Completed Urine Culture Stat Lab 11/25/24 08:56 Received Metoclopramide Inj [Reglan Inj] Med 11/25/24 10:48 Discontinued 10 mg IVP X1 ONE Ondansetron Inj [Zofran Inj] Med 11/25/24 08:27 Discontinued 4 mg IVP X1 ONE Sodium Chloride 0.9% 1000 ml [Ns] 1,000 ml Med 11/25/24 08:27 Discontinued IV 999 mls/hr Vital Signs Vital signs: Vital Signs Temperature 98.4 F 11/25/24 08:22 Pulse Rate 133 H 11/25/24 08:22 Respiratory Rate 18 11/25/24 08:22 Blood Pressure 95/68 11/25/24 08:22 Pulse Oximetry (%) 98 11/25/24 08:22 Oxygen Delivery Method Room Air 11/25/24 08:22 Pulse ox is 98% on room air which is adequate. Nausea/Vomiting/Diarrhea Patient data [place] [facility] [place] Clinical information provided by:: patient Social determinants that could affect healthcare access:: none Patient has the following chronic illnesses:: HTN How is presenting disease/condition affected by chronic disease/condition?: uneffected by Evaluation data The following diagnostics were reviewed and interpreted by me:: lab results and radiology exam(s) Lab and/or radiology exams considered but not ordered:: None Interpretation Summary: Ordering Physician: Dorita Ho MD Date of Service: 11/25/24 Procedure(s): XR abdomen flat and uprght Accession Number(s): [id number] cc: Em Araya; Dante Jean MD; Dorita Ho MD~ EXAMINATION: Abdomen 2 views TECHNIQUE: AP upright AP supine abdomen 2 views Date and time: November 25, 2024, 1015 hours INDICATIONS: Onset abdominal pain today. FINDINGS: Moderate air and stool throughout the colon No obstruction No free air. No abnormal calcific densities IMPRESSION: Moderate air and stool throughout the colon, no obstruction Dictated By: Dante Jean MD Signed By: <Electronically signed by Dante Jean MD in OV> 11/25/24 1046 Medications / Prescriptions Medications / Prescriptions considered but not ordered:: None Medication administrations:: Medication Administration History Discontinued Medications Sodium Chloride (Ns) 1,000 mls @ 999 mls/hr IV .Q1H1M ONE Stop: 11/25/24 09:27 Last Infusion: 11/25/24 10:36 Dose: Infused Documented By: Admin: 11/25/24 09:16 Dose: 999 mls/hr Documented By: EVIE Metoclopramide HCl (Metoclopramide Inj 5 Mg/Ml Vial 2 Ml) 10 mg IVP X1 ONE; Protocol Stop: 11/25/24 10:49 Last Admin: 11/25/24 11:52 Dose: 10 mg Documented By: EVIE Ondansetron HCl (Ondansetron Inj 2 Mg/Ml Inj 2 Ml) 4 mg IVP X1 ONE; Protocol Stop: 11/25/24 08:28 Last Admin: 11/25/24 09:16 Dose: 4 mg Documented By: EVIE See above Consultations Consultation(s) initiated? (list below): No Diagnosis Nausea Differential Diagnosis: gastroenteritis, drug-induced nausea and vomiting and dehydration Most likely diagnosis given after review of the tests above:: Side effect of medication Admission Indicated Admission indicated?: not indicated Admission Request Was there a request for admission?: No Disposition Plan Disposition Plan: Discharge Discharge Attestation Discharge Attestation: The patient and all family members were given an opportunity to ask questions and understood the discharge instructions. Discharge instructions specifically effects, indications for sooner follow up or return to the emergency department, and the expected course of current diagnosis. Patient condition: Stable Discharge Plan Plan Patient Disposition: HOME (Self Care) Prescriptions/Referrals Prescriptions/Med Rec: No Action meloxicam 7.5 mg tablet 7.5 mg PO QDAY Qty: 45 3RF Referrals: Em Araya FNP [Primary Care Provider] - In 1 week Problem List Clinical Impression: Side effect of medication Patient/Caregiver Discharge Instructions Print Language: Armenian Stand Alone Forms: Farrah Award Info., Patient Portal Info Letter
[2024-11-25 10:44] VITALS: BP 97/68; PULSE 105; RESP 16; TEMP 37; O2SAT 95
--- NOTE | 2024-11-25 10:50 | EDRME_ITS ---
Rapid Medical Screening Exam [facility] Arrival date/time: 11/25/24 08:04 54-year-old female with no known medical history presents to the emergency room with a chief complaint of nausea, abdominal pain, vomiting x 4 days. Patient states she bought Wegovy weight loss medication [place] and took it and her symptoms have started since then. I have greeted and performed a focused initial assessment of this patient. A comprehensive ED assessment and evaluation of the patient, analysis of all test results, and completion of the medical decision making process will be conducted by additional ED providers. Chief Complaint: Nausea/Vomiting/Diarrhea Time Seen by Provider: 11/25/24 08:30 Vital signs: Vital Signs Temperature 98.4 F 11/25/24 08:22 Pulse Rate 133 H 11/25/24 08:22 Respiratory Rate 18 11/25/24 08:22 Blood Pressure 95/68 11/25/24 08:22 Pulse Oximetry (%) 98 11/25/24 08:22 Oxygen Delivery Method Room Air 11/25/24 08:22 Vital signs reviewed by provider: Yes [facility] Narrative: 54 yo female patient c/o vomiting x 5 days after injecting Wegovy that she obtained from [place] [employer]. able to keep down small amounts of water. tolerated a small amount of jello. otherwise vomiting everything.
[2024-11-25] MEDS: METOCLOPRAMIDE INJ 5 MG/ML VIAL 2 ML 10 MG IVP (11:52)
[2024-11-25 12:49] VITALS: BP 103/67; PULSE 77; RESP 16; TEMP 36.9; O2SAT 99
== END 2024-11-25 12:49 | disposition home or self-care (01) ==
PROVIDERS: Nurse Practitioner Family; Emergency Provider Emergency Medicine; PCP Registered Nurse Community Health
DX: R10.9 Unspecified abdominal pain (principal)
CPT/HCPCS: 36415; 74019; 80053; 81001; 81025; 83690; 85025; 87086; 96361; 96374; 96375; 99283; J2405; J2765; J7030

== ENCOUNTER 2024-11-28 08:04 | Outpatient (AMB) | payer MEDICAID, SELFPAY ==
--- NOTE | 2024-11-28 09:06 | PD.ORTHCLVIS ---
Vital signs 11/28/24 09:12 Height 1.52 m Height Method Stated Weight 72.575 kg Weight Measurement Method Standing Scale BMI 31.4 BP 125/79 Blood Pressure Source Automatic Cuff Blood Pressure Location Left Upper Arm Position Sitting Respiration 18 Pulse 108 H Pulse Source Monitor Temp 97.2 F Temp Source Temporal Artery Scan Pulse Oximetry (%) 98 Oxygen Delivery Method Room Air Med/Allergies Allergies & Medications Allergies tramadol Allergy (Unknown, Verified 11/28/24 09:12) Medication Reconciliation meloxicam 7.5 mg tablet 7.5 mg PO QDAY #45 tabs 11/24/23 [Rx Confirmed 11/28/24] Exam Exam Patient is in no acute distress and is cooperative with the examination today. Breathing is nonlabored. Patient has a normal mood and affect. Bilateral extremities were evaluated and demonstrates sensation intact to light touch. Palpable pedal pulses are present. No significant edema is present. Bilateral hips were examined. The patient has no pain with log roll of the hips. Internal rotation to 30 degrees and external rotation to 30 degrees is painless. Negative FADIR. Left knee was examined today. The left knee is in reasonable alignment. Range of motion from 0-120 degrees. Knee is stable to varus and valgus as well as AP translation with <5mm. Patient has a negative McMurrays. There is no pain with patellofemoral compression and no crepitus noted. The knee is nontender to palpation. The right knee was also examined. The right knee is in [varus] alignment. Range of motion from [0-115] degrees. Knee is stable to varus and valgus as well as AP translation with <5mm. Patient has a [negative] McMurrays. There is [no] pain with patellofemoral compression and [no] crepitus noted. The knee is [tender] to palpation [medially]. x-rays from [facility] imaging reviewed by me today. This demonstrates moderate joint space narrowing medially. Assessment and Plan Problem List (1) Arthritis of right knee: Status: Acute Plan: Patient is a pleasant 53-year-old female with bilateral knee pain and right greater than left knee arthritis we discussed nonoperative and operative options. Recommend knee cortisone injection as patient would like to proceed with conservative treatment at this time. The risks and benefits of the procedure were reviewed with the patient and patient gave verbal consent to continue with the procedure. Procedure: performed by Dr. Stringer Using sterile technique the Right knee was thoroughly prepped with alcohol, and approximately 1 cc of Depo-Medrol 80mg/mL and 4 cc of 0.2% ropivacaine was injected without resistance into the medial tibial femoral joint space. The patient tolerated the procedure. Recommend knee cortisone injection as patient would like to proceed with conservative treatment at this time. The risks and benefits of the procedure were reviewed with the patient and patient gave verbal consent to continue with the procedure. Procedure: performed by Dr. Stringer Using sterile technique the left knee was thoroughly prepped with alcohol, and approximately 1 cc of Depo-Medrol 80mg/mL and 4 cc of 0.2% ropivacaine was injected without resistance into the medial tibial femoral joint space. The patient tolerated the procedure. Office Procedures GNS Level of Care Nursing/Assessment Patient Status: Established Patient Nursing Assessment/Reassesment: Medication Reconciliation, Update PMH in EMR and Vital Signs Coordination of Care: Complex Care and Chronic Disease 1-5, Education Complex Pt/Fam, Consent,records obtained, informed consent, Results/Orders obtained and Staff clarify orders Special Needs: Language special needs Established Patient Charge Established Patient Point Assignment: 95 Established Patient Point Charge: EP Level 3 (80-115) Surgical Proc/IM SQ injection Minor Surgical Procedure: Yes (BILATERAL KNEE INJECTION) Medication Given Medication Given Medication Given: Yes Documented Dose Given: 2 Route: Infiitration Medication Given Medication Given Medication Given: Yes Documented Dose Given: 8 Route: Infiitration Office Meds methylprednisolone acetate 80 mg/mL suspension for injection Performing Provider: Adalid Stringer MD Performing Location: [facility] Administered by: Adalid Stringer MD on 11/28/24 10:56 Dose Route Admin Location Dispensed Lot Number Expiration Date Package [facility] [employer] 160 mg intra-articular KNEE 2 mL [id number] 08/05/26 [address]-9 [id number] [employer] ropivacaine (PF) 2 mg/mL (0.2 %) injection solution Performing Provider: Adalid Stringer MD Performing Location: [facility] Administered by: Adalid Stringer MD on 11/28/24 10:56 Dose Route Admin Location Dispensed Lot Number Expiration Date Package [facility] [employer] Service [employer] 40 mL Infiltration KNEE 40 mL [id number] 03/07/27 61771-550-30 [id number] [facility] Intake Visit Data Collection New Patient or Established: Established Patient (seen at [facility] within 3 years) Reason for Visit:: BILATERAL KNEE INJECTIONS Seen by Clinical Staff ONLY (RN/MA): No Patrol Sergeant Required: Yes PCP or OBGYN visit in last 3 months: Yes Hx Now: No Do You Feel Safe at Home: Yes Authorities Contacted: N/A Questionairres Past Medical History Past Medical History Have you ever been diagnosed with any of the following: Neurological Problems Seizures: No Cardiology Problems Congestive Heart Failure: No Hypertension: Yes Respiratory Problems Chronic Obstructive Pulmonary Disease (COPD): No Smoking: No Smoking Exposure: No Stomache/Intestinal Problems Obesity: No Genital/Urinary Problems Renal Disease: No Reproductive Problems Previous Pregnancies: Yes Musculoskeletal Problems Arthritis: Yes Carpal Tunnel Syndrome: Yes Endocrine Problems Diabetes Mellitus Type 1: No Diabetes Mellitus Type 2: No Psychologic Problems Depression: Yes Anxiety: Yes Other Problems Blood Transfusions: No Blood Transfusion Reaction: No Anesthesia Reactions: No Chicken Pox: Yes Measles: Yes Subjective Visit Visit for: follow up visit and knee Immunization / Flu Flu Vaccine in the Last 12 Months: No Flu Vaccine Exclusion Criteria: No Exclusion Criteria and Already Received History of Present Illness Chief complaint: right knee pain Patient is a pleasant 54-year female with right greater than left knee pain. This been ongoing for over 1 year and has worsened recently. She reports the pain is miserable. She takes [id number] ibuprofen. She did well with the last injections of her left another round of them today. She has [id number] arthritis of the right knee Personal History BMI Counceling provided: Yes Pain Pain level (0-10): 8 Pain location: anterior Pain quality: sharp Pain timing: increases with activity Associated signs & symptoms: none Ambulatory data Ambulatory device: none Treatments Number of previous injections: 4 Improvement with previous injections: Yes Improvement with PT: No Improvement with NSAIDS: yes Review of Systems Review of Systems: All systems negative unless otherwise noted in HPI.
[2024-11-28 09:12] VITALS: BP 125/79; PULSE 108; RESP 18; TEMP 36.2; O2SAT 98; BMI 31.4
== END 2024-11-28 09:24 | disposition home or self-care (01) ==
LOC: HODSRG 08:04
PROVIDERS: Supervising Provider Orthopaedic Surgery Adult Reconstructive Orthopaedic Surgery; Visit Provider Orthopaedic Surgery Adult Reconstructive Orthopaedic Surgery
DX: M25.562 Pain in left knee (principal); M25.561 Pain in right knee; M17.0 Bilateral primary osteoarthritis of knee; I10 Essential (primary) hypertension
CPT/HCPCS: 20610; 99213; J1010; J2795; G0463